=== PATIENT | male | born 1990 | race Caucasian/White ===

== ENCOUNTER 2017-06-14 01:57 | Emergency (ER) | payer OTHER ==
[2017-06-14 02:06] VITALS: RESP 18
--- NOTE | 2017-06-14 03:08 | EDPHY ---
H & P Stated Complaint: ANXIETY SOB WOKE IN A PANIC Time Seen by Provider: 06/14/17 02:43 HPI/ROS: HPI The patient presents with dizziness and paresthesias of his arms and legs that awoke him from sleep. He is concerned that he may be having a stroke. He had 1 other similar episode while sleeping. He says he does wake up periodically in the middle of the night but noticed tonight when he awoke his arm seemed difficult to move and his legs were tingling. This improved when he began to walk around. He does report sense of impending doom with this and some shortness of breath. He questions if he is having a panic attack. He says he does suffer from anxiety and takes Lexapro for this. He does not report any increased stressors lately. He has been seen at [facility] for this and did have what he thought was a sudden spot of his eye. He was evaluated by Ophthalmology and examination was unremarkable. There was question whether not this was an ocular migraine.. REVIEW OF SYSTEMS Constitutional: No fever, no chills. Eyes: No discharge. ENT: No sore throat. Cardiovascular: No chest pain, no palpitations. Respiratory: No cough, no shortness of breath. Gastrointestinal: No abdominal pain, no vomiting. Genitourinary: No hematuria. Musculoskeletal: No back pain. Skin: No rashes. Neurological: No headache. 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 PHYSICAL General Appearance: Alert, no distress Eyes: Pupils equal and round no pallor or injection ENT, Mouth: Mucous membranes moist Respiratory: There are no retractions, lungs are clear to auscultation Cardiovascular: Regular rate and rhythm Gastrointestinal: Abdomen is soft and non-tender, no masses, bowel sounds normal Neurological: A&O, cranial nerves 2-12 intact, 5/5 strength in upper and lower extremities which is symmetric, sensation is intact to light touch in arms and legs Skin: Warm and dry, no rashes Musculoskeletal: Neck is supple non tender Extremities: symmetrical, full range of motion Psychiatric: Patient is oriented X 3, there is no agitation Source: Patient Exam Limitations: No limitations - Personal History Current Tetanus/Diphtheria Vaccine: Yes Current Tetanus Diphtheria and Acellular Pertussis (TDAP): Yes - Medical/Surgical History Hx Asthma: Yes Hx Chronic Respiratory Disease: No Hx Diabetes: No Hx Cardiac Disease: No Hx Renal Disease: No Hx Cirrhosis: No Hx Alcoholism: No Hx HIV/AIDS: No Hx Splenectomy or Spleen Trauma: No Other PMH: ASTHMA, APPY - Social History Smoking Status: Never smoked Constitutional: Initial Vital Signs Temperature (C) 36.6 C 06/14/17 02:04 Heart Rate 79 06/14/17 02:04 Respiratory Rate 18 06/14/17 02:04 Blood Pressure 143/89 H 06/14/17 02:04 O2 Sat (%) 97 06/14/17 02:04 O2 Delivery Mode Room Air O2 (L/minute) 96 Allergies/Adverse Reactions: No Known Allergies Allergy (Unverified 06/14/17 02:07) Home Medications: Medication Instructions Recorded Escitalopram Oxalate [Lexapro] 10 mg PO 09/19/14 Medical Decision Making Differential Diagnosis: This is a 26-year-old male with past medical history of anxiety who presents after awaking from sleep with paresthesias of his arms and legs. On exam here, his neurologic examination is normal, strength is full and sensation is intact. His symptoms are episodic and have occurred once before. He was encouraged to decrease caffeine use, which she has. He does have some associated shortness of breath and sense of impending doom. I feel this is consistent with anxiety attack. However, paresthesias could be due to other causes perhaps and he may benefit from a neurologic evaluation. Currently, his strength is full. He will be discharged home, I have given him information on neurology follow-up, and have also discussed treatment for panic attacks at home. Departure - Departure Disposition: Home, Routine, Self-Care Clinical Impression: Paresthesia Condition: Good Instructions: Paresthesia (ED), Panic Attack (ED) Additional Instructions: Please monitor your symptoms at home by keeping a log of some sort. If you feel them coming on again, walking around and focusing on your breathing may help. If you have ongoing episodes, I would recommend following up with a neurologist. These could be panic attacks and because of that, you also may want to see your regular doctor to see if your Lexapro should be adjusted or changed. Referrals: [facility] [Other] - As per Instructions Neurologists Heber Kan MD [Medical Doctor] - As per Instructions
[2017-06-14 03:19] VITALS: BP 140/83; PULSE 64; TEMP 98.1; O2SAT 95
== END 2017-06-14 03:24 | disposition home or self-care (01) ==
DX: R20.2 Paresthesia of skin (principal); J45.909 Unspecified asthma, uncomplicated